=== PATIENT | male | born 1980 | race Caucasian/White ===

== ENCOUNTER → 2023-01-04 08:12 | Outpatient (CLI) | payer OTHER, SELFPAY ==
--- NOTE | ~2023-01-04 | MR_ITS ---
MRI of the cervical spine Clinical History: Radiculopathy Technique: Axial T2-weighted and gradient images, and sagittal T1-weighted, T2-weighted, and STIR agustín ges were acquired. Findings: There is no fracture or subluxation of the cervical spine. Vertebral bodies maintain normal height and alignment. There are reactive marrow signal changes about the C6-C7 disc space due to und erlying degenerative disc disease. At C2-C3, there is no disc bulge or herniation. No spinal canal stenosis, cord compression, or neural foraminal narrowing. At C3-C4, there is no disc bulge or herniation. No spinal canal stenosis, cord compression, or neural foraminal narrowing. At C4-C5, there is minimal disc osteophyte complex. No spinal canal stenosis, cord compression, or ne ural foraminal narrowing. At C5-C6, there is disc osteophyte complex, most prominent at the left paracentral to left foraminal region. There is minimal flattening of the left side of the ventral cord. There is left neural forami nal narrowing. Right neural foramen is preserved. At C6-C7, there is mild disc osteophyte complex, which results in mild canal stenosis, but no definit e chalo cord compression. There is probable bilateral neural foraminal narrowing, left worse than rig ht. No abnormal signal seen in the spinal cord. Paravertebral soft tissues are unremarkable. Impression: Left paracentral to left foraminal disc osteophyte complex at C5-C6, which minimally flattens the lef t ventral spinal cord, and narrows left neural foramen. Mild canal stenosis and mild bilateral neural foraminal narrowing at C6-C7. Reviewed, dictated and finalized at [facility]. [employer] Impression: Left paracentral to left foraminal disc osteophyte complex at C5-C6, which mini adela flattens the left ventral spinal cord, and narrows left neural foramen. Mild canal stenosis and mild bilateral neural foraminal narrowing at C6-C7.
== END ==
PROVIDERS: PCP Internal Medicine; Visit Provider Nurse Practitioner Family
DX: M54.12 Radiculopathy, cervical region (principal); M25.78 Osteophyte, vertebrae; M48.02 Spinal stenosis, cervical region
CPT/HCPCS: 72141

== ENCOUNTER 2025-02-01 01:15 | Day surgery (SDC) | payer OTHER, SELFPAY ==
[2025-01-25 09:12] VITALS: BMI 31.4
[2025-02-01 08:20] VITALS: BP 146/83; PULSE 77; RESP 18; TEMP 36; O2SAT 100; BMI 32.3
[2025-02-01] MEDS: LACTATED RINGERS 1,000 ML 150 ML IV CONT ×2 (08:34→09:48)
--- NOTE | 2025-02-01 09:22 | WPDANESEPPF ---
Anes - Initial Pre Proc Eval Procedure: Operation Date: 02/01/25 09:30 Proposed Procedures p Screening Colonoscopy - Vijay Taylor MD Date/Time: 02/01/25 09:22 Surgeon: Vijay Taylor MD Pre Op Diagnosis: screening for malignant neoplasm of colon Patient Data Age: 44 Gender: M Height: 1.83 m Weight: 108.2 kg Last Vital Signs Temp 36.0 C L 02/01/25 08:20 Pulse 77 02/01/25 08:20 Resp 18 02/01/25 08:20 BP 146/83 H 02/01/25 08:20 Pulse Ox 100 02/01/25 08:20 O2 Del Method Room Air 02/01/25 08:20 Allergies Allergy/AdvReac Type Severity Reaction Status Date / Time codeine AdvReac Mild Unknown Verified 02/01/25 08:26 Home Medications ?Medication ?Instructions ?Recorded ?Confirmed ?Type cetirizine 10 mg tablet (Zyrtec) 10 mg PO DAILY 08/16/20 02/01/25 History meloxicam 7.5 mg tablet See Rx Instructions .Route 11/12/24 02/01/25 Rx .COMPLEX #90 tabs allopurinol 300 mg tablet 300 mg PO DAILY #90 tabs 11/27/24 02/01/25 Rx Patient hx anesthesia problems: none Family hx anesthesia problems: none Results Review: All pre-operative results and documents have been reviewed as part of the pre-operative evaluation. [facility] Past Medical History Medical History Chronic neck pain Hyperglycemia Prostatism Vitiligo Gout Family History Family History Mother Patient's mother is in good health Father Patient's father is in good health Social History Social History Social History: Caffeine-coffee/soda daily Smoking status: Former smoker Smoking end date: 12/02/07 Alcohol intake: current Alcohol use details: socially Lack of Transportation: No Lack of Food: Never True Current Housing: I Have Housing Concerned About Future Housing: No Difficulty Paying Gas/Electric Bills: No Difficulty Paying for Meds: No Currently Unemployed: No Education: Master's Degree or Higher Difficulty w/ Childcare or Family Care: No Anes - Eval Final PreProcedure Day of Procedure 02/01/25 09:22 Patient weight: obese Heart: regular rate and rhythm Lungs: clear to auscultation Airway: Mallampati scale class II Neurological: alert and oriented Last oral intake: >/= 8 hours ASA classification: II Emergent: no Anesthetic plan: proceed Anesthesia type and monitoring: general GIVS and standard monitoring Results Review: All pre-operative results and documents have been reviewed as part of the pre-operative evaluation. Informed Consent: The patient's anesthetic plan and its attendant risks and benefits were discussed with the patient/family/POA. Questions were solicited and answers provided to the satisfaction of the patient/family/POA.
--- NOTE | 2025-02-01 09:42 | PM.IMHP ---
H&P: HPI History of Present Illness Date/Time: 02/01/25 09:42 Chief Complaint: Screening colonoscopy Narrative: This is the patient's first colonoscopy. There are no GI symptoms and there is no family history of colorectal cancer. Review of Systems Review of Systems: All systems reviewed & are unremarkable except as noted in HPI and below PMFSH Past Medical History Medical History Chronic neck pain Hyperglycemia Prostatism Vitiligo Gout Family History Family History Mother Patient's mother is in good health Father Patient's father is in good health Social History Social History Social History: Caffeine-coffee/soda daily Smoking status: Former smoker Smoking end date: 12/02/07 Alcohol intake: current Alcohol use details: socially Lack of Transportation: No Lack of Food: Never True Current Housing: I Have Housing Concerned About Future Housing: No Difficulty Paying Gas/Electric Bills: No Difficulty Paying for Meds: No Currently Unemployed: No Education: Master's Degree or Higher Difficulty w/ Childcare or Family Care: No Meds Home Medications and Allergies Home Medications ?Medication ?Instructions ?Recorded ?Confirmed ?Type cetirizine 10 mg tablet (Zyrtec) 10 mg PO DAILY 08/16/20 02/01/25 History meloxicam 7.5 mg tablet See Rx Instructions .Route 11/12/24 02/01/25 Rx .COMPLEX #90 tabs allopurinol 300 mg tablet 300 mg PO DAILY #90 tabs 11/27/24 02/01/25 Rx Allergies Allergy/AdvReac Type Severity Reaction Status Date / Time codeine AdvReac Mild Unknown Verified 02/01/25 08:26 Vital Signs Vital Signs - 24 hr 02/01/25 08:20 Temperature 96.8 F L Pulse Rate 77 Respiratory Rate 18 Blood Pressure 146/83 H Pulse Oximetry 100 Oxygen Delivery Room Air Exam Const: General: cooperative and healthy appearing Resp: Effort & Inspection: normal respiratory effort and able to speak in complete sentences Auscultation: clear to auscultation bilaterally Cardio: Rate: regular rate Rhythm: regular rhythm GI: Inspection: normal to inspection GI Palp: No No hepatosplenomegaly present Auscultation: normal bowel sounds Rectal Exam: deferred Skin: General skin exam: normal color Psych: Appearance: grossly normal Mental Status: mental status grossly normal Assessment and Plan Assessment and plan (1) Screening for colon cancer: Code(s): Z12.11 - Encounter for screening for malignant neoplasm of colon Status: Acute Assessment and Plan: The patient is deemed a good candidate for the procedure. Consent signed. Will proceed.
[2025-02-01 10:08] VITALS: BP 160/72; PULSE 74; RESP 18; O2SAT 97
[2025-02-01 10:18] VITALS: BP 128/83; PULSE 77; RESP 19; O2SAT 99
[2025-02-01 10:28] VITALS: BP 143/95; PULSE 62; RESP 20; O2SAT 100
== END 2025-02-01 10:33 | disposition home or self-care (01) ==
PROVIDERS: PCP Internal Medicine; Referring Provider Nurse Practitioner; Visit Provider Internal Medicine Gastroenterology
PROC: 0DJD8ZZ Inspection of Lower Intestinal Tract, Via Natural or Artificial Opening Endoscopic (ICD-10-PCS; CPT 45378; principal; 2025-02-01 09:30)
DX: Z12.11 Encounter for screening for malignant neoplasm of colon (principal); Z87.891 Personal history of nicotine dependence; E66.9 Obesity, unspecified; Z68.32 Body mass index [BMI] 32.0-32.9, adult
CPT/HCPCS: 45378; J2003; J2704; J7120